=== PATIENT | female | born 1985 | race American Indian/Alaskan Native ===

== ENCOUNTER 2020-08-20 00:13 | Emergency (ER) | payer SELFPAY ==
--- NOTE | 2020-08-20 00:30 | Emergency Department Report ---
HPI - General Time Seen by Provider: 08/20/20 00:25 - HPI HPI: Room 20 The patient is a 35-year-old female present with a chief complaint of cardiac arrest. Per EMS the patient received a call for difficulty breathing. EMS arrived on scene at 23: 43 to find the patient lying on the floor in asystole. ACLS protocols were initiated and the patient was intubated by EMS. EMS administered Narcan, 3 rounds of epinephrine, 100 mg of lidocaine and defibrillated the patient once when she was found in fine V. fib. Upon arrival to the ED ACLS protocols were continued but there was no return of spontaneous circulation ED Past Medical Hx - Surgical History Past Surgical History?: No - Family History Family history: no significant - Social History Smoking Status: Unknown if ever smoked ED Review of Systems ROS: Stated complaint: CARDIAC ARREST Other details as noted in HPI Comment: Unobtainable due to pts medical conditions Physical Exam - Physical Exam Physical Exam: GENERAL: The patient is well-developed well-nourished female lying on stretcher receiving chest compressions from BRIONNA and being bagged via ET tube. [] HEENT: Normocephalic. Atraumatic. NECK: Trachea midline CHEST/LUNGS: Upon arrival there were no breaths throughout sounds auscultated over the left lung with bagging subsequently the ET tube was retracted to 21 at the lips and there were breath sounds equally bilaterally with bagging. No spontaneous respirations HEART/CARDIOVASCULAR: No heart sounds. Asystole on monitor ABDOMEN: Abdomen is soft SKIN: There is no rash. There is no edema. There is no diaphoresis. NEURO: GCS 3 T MUSCULOSKELETAL: There is no evidence of acute injury. ED Medical Decision Making - Differential Diagnosis Respiratory arrest, cardiac arrest Critical care attestation.: If time is entered above; I have spent that time in minutes in the direct care of this critically ill patient, excluding procedure time. ED Disposition Clinical Impression: Cardiac arrest Disposition: DC-20 Is pt being admited?: No Does the pt Need Aspirin: No Condition: Poor Time of Disposition: 00:26 (Patient )
== END 2020-08-20 03:45 ==
LOC: ED 00:13
DX: I46.9 Cardiac arrest, cause unspecified (principal)